=== PATIENT | male | born 1970 | race Caucasian/White ===

== ENCOUNTER → 2025-07-14 14:51 | Outpatient (REF) | payer OTHER, SELFPAY | LOC: HWEVLT 14:51 | PROVIDERS: ATTENDING PHYSICIAN Radiology Vascular & Interventional Radiology | DX: I83.893 Varicose veins of bilateral lower extremities with other complications (principal) | CPT/HCPCS: 93970 ==

== ENCOUNTER → 2025-09-07 09:35 | Outpatient (REF) | payer OTHER, SELFPAY | LOC: HWEVLT 09:35 | PROVIDERS: ATTENDING PHYSICIAN Radiology Vascular & Interventional Radiology | DX: I83.891 Varicose veins of right lower extremity with other complications (principal) | CPT/HCPCS: 36478; C1769 ==

== ENCOUNTER → 2025-09-27 11:13 | Outpatient (REF) | payer OTHER, SELFPAY | LOC: HWEVLT 11:13 | PROVIDERS: ATTENDING PHYSICIAN Radiology Diagnostic Radiology | DX: I83.891 Varicose veins of right lower extremity with other complications (principal) | CPT/HCPCS: 93971 ==